=== PATIENT | female | born 1990 | race Caucasian/White ===

== ENCOUNTER 2021-02-15 05:38 | Emergency (ER) | payer OTHER ==
[2021-02-15 09:31] LABS: HEMOGLOBIN 12.2 gm/dl (12.3-15.3); WHITE BLOOD COUNT 9.1 K/UL (4.5-11.0)
[2021-02-15 09:56] LABS: BUN/CREATININE RATIO 23 (0-10)
== END 2021-02-15 15:36 | disposition home or self-care (01) ==
LOC: ER1 05:38
PROVIDERS: Physician Assistant
DX: S06.0X9A Concussion with loss of consciousness of unspecified duration, initial encounter (principal); S61.411A Laceration without foreign body of right hand, initial encounter; S05.12XA Contusion of eyeball and orbital tissues, left eye, initial encounter; Z20.822 Contact with and (suspected) exposure to COVID-19; E87.6 Hypokalemia; M54.2 Cervicalgia; M54.6 Pain in thoracic spine; R00.0 Tachycardia, unspecified; Y04.0XXA Assault by unarmed brawl or fight, initial encounter
CPT/HCPCS: 70450; 70486; 72125; 72128; 80053; 85025; 90471; 90715; 99284; U0002